=== PATIENT | female | born 1990 | race African-American/Black ===

== ENCOUNTER 2017-07-15 05:42 | Outpatient (CLI) | payer SELFPAY ==
[2017-07-15 06:58] LABS: Appearance,Urine Clear (Clear); Bilirubin,Urine Negative (Negative); Blood,Urine Negative (Negative); Color,Urine Light Yellow; Glucose,Urine (UA) Negative (Negative); Ketones,Urine Negative (Negative); Leukocyte Esterase,Urine Negative (Negative); Nitrite,Urine Negative (Negative); PH, Urine 7.5 (5.0-8.0); Protein,Urine Negative (Negative); Specific Gravity,Urine 1.006 (1.001-1.035); Urobilinogen,Urine <2.0 mg/dL (<2.0)
[2017-07-15 07:10] LABS: Cocaine Screen,Urine Detected (NotDetected); Phencyclidine Screen,Urine Not Detected (NotDetected); Urn Cannabinoid Scrn Not Detected (NotDetected)
[2017-07-15 07:11] LABS: Basophils % (A) 0 %; Eosinophils # (A) 0.1 k/uL (0-0.7); Eosinophils % (A) 0 %; HCT 30.9 % (34.0-46.0); HGB 9.7 gm/dL (11.4-16.0); Hypochromasia Slight; Lymphocytes # (A) 2.6 k/uL (1.0-4.8); Lymphocytes % (A) 18 %; MCH 26.9 pg (25.0-35.0); MCHC 31.5 g/dL (31.0-37.0); MCV 85.5 fL (80.0-100.0); Mean Platelet Volume 7.7; Monocytes % (A) 7 %; Neutrophils # (A) 10.7 k/uL (1.3-7.7); Neutrophils % (A) 74 %; Platelet Count 349 k/uL (150-450); RBC 3.61 m/uL (3.80-5.40); RDW 15.1 % (11.5-15.5); WBC 14.6 k/uL (3.8-10.6)
[2017-07-15 07:19] LABS: ALT 31 U/L (9-52); AST 33 U/L (14-36); LDH 442 U/L (313-618); Uric Acid 2.5 mg/dL (3.7-7.4)
[2017-07-15 07:23] LABS: Amphetamine Screen,Urine Not Detected (NotDetected); Barbiturate Screen,Urine Not Detected (NotDetected); Benzodiazepines Screen,Urine Not Detected (NotDetected); Methadone Screen, Urine Not Detected (NotDetected); Opiate Screen,Urine Not Detected (NotDetected); Oxycodone Screen, Urine Not Detected (NotDetected); Tricyclic Antidepressant,Urine Not Detected (NotDetected)
[2017-07-15 07:36] VITALS: RESP 20; TEMP 97.2
--- NOTE | 2017-07-15 08:24 | US ---
EXAMINATION TYPE: US OB >= 14 wk fetus DATE OF EXAM: 07/15/2017 COMPARISON: None CLINICAL HISTORY: possible abruption, complete ultrasound per MD TECHNIQUE: Transabdominal (TA) GESTATIONAL AGE / DATING Physician Established: (33 weeks/1 days) EDC: 09/01/2017 Dates by Current Scan: (33 weeks/4 days) EDC: 08/29/2017 SURVEY IUP: Single PLACENTA: Anterior PREVIA: No Previa HORACE: 23.1 cm Polyhydramnios CERVICAL LENGTH (transabdominal: norm > 3.0cm): 2.5 cm BIOMETRY PRESENTATION: Vertex LIE: Longitudinal BPD: 8.7 cm 35 weeks / 0 days HC: 31.3 cm 35 weeks / 0 days AC: 30.6 cm 34 weeks / 4 days FL: 6.3 cm 32 weeks / 4 days ESTIMATED WEIGHT IN GRAMS: 2352 grams ESTIMATED WEIGHT IN LBS/OZ: 5 lbs. 3 oz. WEIGHT PERCENTAGE BASED ON ESTABLISHED DATES: 71.7% HC/AC: 1.0 Normal FL/AC: 20.5 Normal HEART RATE: 134 bpm RHYTHM: Normal Live single IUP measuring 33 weeks 4 days. Polyhydramnios. Cervix appears short. Debris seen in am niotic fluid. IMPRESSION: 1. Although no discrete sonographic evidence of placental displacement or undermining is seen there i s polyhydramnios with diffuse debris within the amniotic fluid. Differential is for hemorrhage into t he amniotic cavity, meconium contamination, or vernix caseosa. 2. Cervical length is abnormally decreased measuring 2.5 cm. Evaluate for cervical insufficiency. A [facility] message has been communicated to Lynn Alcala DO via the [employer] system on 07/15/2017 8:22 AM, Message ID [id number].
[2017-07-15 09:05] VITALS: BP 143/86; PULSE 80
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
== END 2017-07-15 10:25 | disposition other institution (70) ==
LOC: FBPOP 05:42
PROVIDERS: ATTEND Obstetrics & Gynecology
DX: O99.89 Other specified diseases and conditions complicating pregnancy, childbirth and the puerperium (principal); R10.9 Unspecified abdominal pain; O99.323 Drug use complicating pregnancy, third trimester; F14.90 Cocaine use, unspecified, uncomplicated; F12.90 Cannabis use, unspecified, uncomplicated; O99.313 Alcohol use complicating pregnancy, third trimester; Z3A.33 33 weeks gestation of pregnancy
CPT/HCPCS: 59025; 76805; 80306; 81003; 82565; 82570; 82731; 83615; 84156; 84450; 84460; 84550; 85025; 96360; 96361; 99213; 99214

== ENCOUNTER 2019-07-13 15:31 | Inpatient (IN) | payer OTHER ==
[2019-07-13] MEDS ORDERED: CARBOPROST TROMETHAMINE 250 MCG/ML 1 ML AMP IM PRN (16:08)
[2019-07-13] MEDS ORDERED: TERBUTALINE 1 MG/ML VIAL SQ PRN (16:08)
[2019-07-13] MEDS ORDERED: METHYLERGONOVINE 0.2 MG/ML 1 ML AMP IM PRN (16:08)
[2019-07-13] MEDS ORDERED: OXYTOCIN 10 UNIT/ML 1 ML VIAL IM PRN (16:08)
[2019-07-13] MEDS ORDERED: LIDOCAINE 0.5% (PF) 5 MG/ML (50 ML SDV) SQ PRN (16:08)
[2019-07-13] MEDS ORDERED: PENICILLIN G POTASSIUM 5,000,000 UNIT in DEXTROSE 5% IN WATER 100 ML IVPB STA ×2 (16:12)
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
[2019-07-13 16:58] LABS: Appearance,Urine Cloudy (Clear); Bilirubin,Urine Negative (Negative); Blood,Urine Negative (Negative); Color,Urine Light Yellow; Glucose,Urine (UA) Negative (Negative); Ketones,Urine Negative (Negative); Leukocyte Esterase,Urine Large (Negative); Mucus,Urine Rare /hpf; Nitrite,Urine Negative (Negative); PH, Urine 6.5 (5.0-8.0); Protein,Urine Negative (Negative); RBC,Urine <1 /hpf (0-5); Specific Gravity,Urine 1.008 (1.001-1.035); Squamous Epithelial Cell,Urine 3 /hpf (0-4); Urobilinogen,Urine <2.0 mg/dL (<2.0); WBC,Urine 20 /hpf (0-5)
[2019-07-13] MEDS: LACTATED RINGERS 1,000 ML IV SCH ×3 (16:59→19:36)
[2019-07-13 17:07] LABS: Amphetamine Screen,Urine Not Detected (NotDetected); Barbiturate Screen,Urine Not Detected (NotDetected); Benzodiazepines Screen,Urine Not Detected (NotDetected); Cocaine Screen,Urine Detected (NotDetected); Methadone Screen, Urine Not Detected (NotDetected); Opiate Screen,Urine Not Detected (NotDetected); Oxycodone Screen, Urine Not Detected (NotDetected); Phencyclidine Screen,Urine Not Detected (NotDetected); Tricyclic Antidepressant,Urine Not Detected (NotDetected); Urn Cannabinoid Scrn Detected (NotDetected)
[2019-07-13 17:12] LABS: Anisocytosis Slight; Basophils # (A) 0.1 k/uL (0-0.2); Basophils % (A) 1 %; Eosinophils # (A) 0.1 k/uL (0-0.7); Eosinophils % (A) 1 %; HCT 30.4 % (34.0-46.0); HGB 9.4 gm/dL (11.4-16.0); Hypochromasia Slight; Lymphocytes # (A) 1.4 k/uL (1.0-4.8); Lymphocytes % (A) 19 %; MCH 28.2 pg (25.0-35.0); Mean Platelet Volume 7.1; Monocytes # (A) 0.5 k/uL (0-1.0); Monocytes % (A) 7 %; Neutrophils # (A) 5.1 k/uL (1.3-7.7); Neutrophils % (A) 69 %; Platelet Count 277 k/uL (150-450); RBC 3.34 m/uL (3.80-5.40); WBC 7.3 k/uL (3.8-10.6)
[2019-07-13] MEDS ORDERED: SODIUM CHLORIDE 0.9% 100 ML BAG ONE (17:31)
[2019-07-13] MEDS ORDERED: ROPIVACAINE 5MG/ML 20ML VIAL ONE (17:31)
[2019-07-13] MEDS ORDERED: fentaNYL (PF) 50 MCG/ML 5 ML AMP ONE (17:31)
[2019-07-13] MEDS ORDERED: OXYTOCIN 30 UNITS/500 ML NS 30 UNIT in SALINE 1 500ML.BAG IV SCH (19:00)
[2019-07-13] MEDS ORDERED: PENICILLIN G POTASSIUM 2,500,000 UNIT in DEXTROSE 5% IN WATER 100 ML IVPB SCH ×2 (20:15)
[2019-07-13] MEDS ORDERED: diphenhydrAMINE 25 MG CAP PO PRN ×2 (21:11→21:34)
[2019-07-13] MEDS ORDERED: diphenhydrAMINE 50 MG CAP PO PRN ×2 (21:11→21:34)
[2019-07-13] MEDS ORDERED: BENZOCAINE/MENTHOL SPRAY 1 GM/SPRAY AEROSOL TOPICAL PRN ×2 (21:11→21:34)
[2019-07-13] MEDS ORDERED: LANOLIN CREAM 5 GM TUBE TOPICAL PRN ×2 (21:11→21:34)
[2019-07-13] MEDS ORDERED: SIMETHICONE 80 MG CHEWABLE PO PRN ×2 (21:11→21:34)
[2019-07-13] MEDS ORDERED: ACETAMINOPHEN TAB 325 MG TAB PO PRN ×2 (21:11→21:34)
[2019-07-13] MEDS ORDERED: WITCH HAZEL 1 EACH MED..PAD TOPICAL PRN ×2 (21:11→21:34)
[2019-07-13] MEDS ORDERED: ZOLPIDEM 5 MG TAB PO PRN ×2 (21:11→21:34)
[2019-07-13] MEDS ORDERED: HYDROCORTISONE 2.5% RECTAL CREAM 30 GM TUBE RECTAL PRN ×2 (21:11→21:34)
[2019-07-13] MEDS ORDERED: diphenhydrAMINE 50 MG/ML 1 ML VIAL IVP PRN ×4 (21:11→21:34)
[2019-07-13] MEDS ORDERED: OXYTOCIN 20 UNITS/1000 ML NS 1,000 ML IV SCH ×2 (21:15→21:45)
[2019-07-13] MEDS: IBUPROFEN 600 MG TAB PO PRN (21:26)
[2019-07-13] MEDS ORDERED: IBUPROFEN 600 MG TAB PO PRN (21:34)
--- NOTE | 2019-07-13 21:34 | P.PROBDLV ---
Vaginal Delivery Note - . Vaginal Delivery Note: This is a 29-year-old black female 7 para 3033 EDC 07/18/2019 at 39-2/7 weeks' gestation. Patient presented with no care in active labor. 2 days ago she consumed her last crack cocaine, marijuana, and alcohol. In addition she smokes 2 pack per day tobacco. She has a history of HSV but no active lesions. Please see my dictated history and physical for details. Artificial amniorrhexis revealed light meconium-stained fluid. She became completely dilated at 4 hours. Perineal body was prepped and draped in usual sterile fashion. Epidural had been placed per her request. Please note that heart tones were reassuring throughout the first and second stages of labor. Very quickly 's head delivered occiput anterior and restituted accordingly. There was no nuchal cord noted. The left or anterior shoulder delivered from underneath the pubic symphysis easily at which time the oropharynx, nasopharynx, and external nares were all bulb suctioned on the perineal body. Patient was officially delivered of a liveborn female at 2035 hours. Umbilical cord was doubly clamped and ligated, she was handed to waiting nurses for evaluation where scores of 9 and 9 at one and 5 minutes respectively were given. Cord blood was sent to the lab. The placenta delivered spontaneously, it was inspected and noted to be intact with trivascular cord at 2040 hours. This time the uterus is massaged. Careful inspection of the cervix, vagina, perineum, periurethral, and perirectal areas revealed no lacerations or defects. weighed 2500 g or 5 lbs. 8 oz. All sponge needle and enhancement counts are correct at the end of the procedure. Total estimated blood loss 200 mL's. rehabilitation services manager consult will be obtained.
[2019-07-13] MEDS ORDERED: SERTRALINE 100 MG TAB PO SCH (22:30)
[2019-07-13] MEDS: QUEtiapine 200 MG TAB PO SCH (22:41)
[2019-07-13] MEDS: CYCLOBENZAPRINE 10 MG TAB PO PRN (23:44)
[2019-07-14 00:41] LABS: Hepatitis B Surface Antigen Non-Reactive (Non-Reactive)
[2019-07-14 06:20] VITALS: RESP 16
[2019-07-14 07:49] LABS: Basophils # (A) 0.1 k/uL (0-0.2); Basophils % (A) 1 %; Eosinophils # (A) 0.1 k/uL (0-0.7); Eosinophils % (A) 1 %; HCT 28.9 % (34.0-46.0); HGB 9.3 gm/dL (11.4-16.0); Lymphocytes # (A) 1.8 k/uL (1.0-4.8); Lymphocytes % (A) 21 %; MCH 28.6 pg (25.0-35.0); MCHC 32.3 g/dL (31.0-37.0); MCV 88.4 fL (80.0-100.0); Mean Platelet Volume 7.3; Monocytes # (A) 0.6 k/uL (0-1.0); Monocytes % (A) 8 %; Neutrophils # (A) 5.5 k/uL (1.3-7.7); Neutrophils % (A) 67 %; Platelet Count 275 k/uL (150-450); RBC 3.27 m/uL (3.80-5.40); RDW 15.7 % (11.5-15.5); WBC 8.3 k/uL (3.8-10.6)
[2019-07-14] MEDS ORDERED: SENNOSIDES-DOCUSATE SODIUM 1 EACH TAB PO SCH (08:00)
[2019-07-14] MEDS: SENNOSIDES-DOCUSATE SODIUM 1 EACH TAB PO SCH ×2 (09:44→21:29)
[2019-07-14] MEDS: QUEtiapine 200 MG TAB PO SCH (09:45)
[2019-07-14] MEDS: valACYclovir 500 MG TAB PO SCH (09:45)
--- NOTE | 2019-07-14 10:41 | P.PN ---
Subjective Progress Note Date: 07/14/19 Principal diagnosis: day #1 Objective - Vital Signs Vital signs: Vital Signs Temp 98.2 F 07/14/19 08:00 Pulse 73 07/14/19 08:00 Resp 16 07/14/19 08:00 BP 137/86 07/14/19 08:00 Pulse Ox 100 07/13/19 23:55 Intake & Output 07/13/19 07/14/19 07/14/19 18:59 06:59 18:59 Output Total 701 Balance -701 Weight 72.121 kg Output: Urine 701 Other: # Voids 1 0 700 - Constitutional Constitutional Comment(s): Patient argumentative, somnolent. General appearance: Present: average body habitus - EENT Eyes: Present: poor dentition ENT: Present: hearing grossly normal - Neck Neck: Present: normal ROM - Respiratory Respiratory: bilateral: CTA - Cardiovascular Rhythm: regular - Gastrointestinal Gastrointestinal Comment(s): Fundus firm, midline, symmetric, 18 week size General gastrointestinal: Present: normal bowel sounds - Neurologic Neurologic: Present: CNII-XII intact - Musculoskeletal Musculoskeletal: Present: gait normal - Psychiatric Psychiatric Comment(s): Patient very irritable, argumentative with staff. Declines further discussion with me, asking for me to leave the room. - Labs CBC & Chem 7: 07/14/19 07:10 07/13/19 16:51 Labs: Abnormal Lab Results - Last 24 Hours (Table) 07/13/19 07/13/19 07/14/19 Range/Units 16:00 16:49 07:10 RBC 3.34 L 3.27 L (3.80-5.40) m/uL Hgb 9.4 L 9.3 L (11.4-16.0) gm/dL Hct 30.4 L 28.9 L (34.0-46.0) % RDW 16.0 H 15.7 H (11.5-15.5) % Urine Appearance Cloudy H (Clear) Ur Leukocyte Esterase Large H (Negative) Urine WBC 20 H (0-5) /hpf Urine Mucus Rare H (None) /hpf Urine Cocaine Screen Detected H (NotDetected) U Marijuana (THC) Screen Detected H (NotDetected) Assessment and Plan Assessment: day #1 Plan: Patient refuses discharge home today. I have shared with her that I'm concerned about her withdrawal signs and symptoms, and an anxious for her to be admitted to [place] for proper drug rehabilitation program and coverage. She states she will not discussed with me further, requesting to be left alone so that she can sleep. rn patient services consult is in progress. Will not circumcised today as he is being monitored closely in the nursery. Time with Patient: Less than 30
[2019-07-14] MEDS: IBUPROFEN 600 MG TAB PO PRN (22:37)
[2019-07-14] MEDS: SERTRALINE 100 MG TAB PO SCH (22:38)
[2019-07-14] MEDS: CYCLOBENZAPRINE 10 MG TAB PO PRN (22:38)
[2019-07-15 00:07] VITALS: TEMP 98.2
--- NOTE | 2019-07-15 00:07 | US ---
EXAMINATION TYPE: US venous doppler duplex LE RT DATE OF EXAM: 07/14/2019 11:47 PM COMPARISON: NONE CLINICAL HISTORY: rule out embolus. palp lump in right pop fossa SIDE PERFORMED: Right TECHNIQUE: The lower extremity deep venous system is examined utilizing real time linear array sonog andrzej with graded compression, doppler sonography and color-flow sonography. VESSELS IMAGED: External Iliac Vein (EIV) Common Femoral Vein Deep Femoral Vein Greater Saphenous Vein * Femoral Vein Popliteal Vein Small Saphenous Vein * Proximal Calf Veins (* superficial vessels) Right Leg: Negative for DVT Imaging was performed at area of palpable. There is a varicosity with thrombus noted at palpable. IMPRESSION: There is no evidence of deep venous thrombosis. There is thrombosed varicose vein.
[2019-07-15 08:01] VITALS: BP 114/79; PULSE 70
--- NOTE | 2019-07-15 09:17 | P.DS ---
Providers Date of admission: 07/13/19 16:31 Expected date of discharge: 07/15/19 Attending physician: Kaci Leggett Primary care physician: Stated None Hospital Course: This is a 29-year-old black female 7 para 3033 EDC 07/18/2019 at 39-2/7 weeks' gestation. Patient presented to our hospital in early spontaneous labor. She has had no care. She last used crack cocaine and THC per her report 2 days ago. She has a history of seizures, off seizure meds with . She smokes 2 packs per day and also admits to alcohol use. Please see my dictated history and physical for details. Artificial amniorrhexis revealed light meconium-stained fluid. Epidural was placed per her request. She went on to deliver a liveborn female with scores of 9 and 9 at one and 5 minutes respectively. Penicillin G prop hylaxis was given. weighed 5 lbs. 8 oz. or 2500 g. The were no perineal lacerations encountered. Total estimated blood loss 200 mL's. Trivascular cord. Placenta sent to pathology. Please see my dictated delivery note for details. This morning the patient appears less somnolent, and less aggressive in her mannerisms. Her plan is to be discharged to [facility] facility, they have be en contacted and are aware of the patient's status. I have reminded her no intercourse, tampons or douching. We have briefly discussed options for contraception and we'll discuss this further in the office. I would see the patient in the office in 6 weeks for her check if she is available, the patient does live in the [facility]. I have recommended Advil or Aleve as needed for pain. I've asked her to call the office with any fevers shakes or chills, foul smelling or copious lochia, with the passage of large blood clots, with any difficulties or issues not alleviated by [id number] medications. The patient did have a varicosity posterior to the knee and a Doppler ultrasound this morning is negative for DVT. She has varicosities noted in the vulvar area as well. I have discussed with her recommendations in this regard. [place] infant will remain in the nursery at this time, social media marketing manager team aware and following. Patient Condition at Discharge: Fair Plan - Discharge Summary Discharge Rx Participant: No New Discharge Prescriptions: No Action QUEtiapine [SEROquel] 200 mg PO DAILY Cyclobenzaprine [Flexeril] 10 mg PO TID valACYclovir [Valtrex] 500 mg PO DAILY Sertraline [Zoloft] 100 mg PO DAILY Discharge Medication List Cyclobenzaprine [Flexeril] 10 mg PO TID 07/13/19 [History] QUEtiapine [SEROquel] 200 mg PO DAILY 07/13/19 [History] Sertraline [Zoloft] 100 mg PO DAILY 07/13/19 [History] valACYclovir [Valtrex] 500 mg PO DAILY 07/13/19 [History] Follow up Appointment(s)/Referral(s): Kaci Leggett MD [STAFF PHYSICIAN] - 6 Weeks
[2019-07-15] MEDS: valACYclovir 500 MG TAB PO SCH (10:16)
[2019-07-15] MEDS: SENNOSIDES-DOCUSATE SODIUM 1 EACH TAB PO SCH (10:16)
[2019-07-15] MEDS: SERTRALINE 100 MG TAB PO SCH (10:17)
[2019-07-15] MEDS ORDERED: QUEtiapine 200 MG TAB PO SCH (21:00)
[2019-07-17 19:03] LABS: HIV 1 AB Non-Reactive (Non-Reactive); HIV 2 AB Non-Reactive (Non-Reactive); HIV AB P24 Non-Reactive (Non-Reactive); HIV P24 AG Non-Reactive (Non-Reactive)
== END 2019-07-15 13:35 | disposition home or self-care (01) | DRG 806 ==
LOC: FBPOP 15:31 → 4FBP 16:31
PROVIDERS: ADMIT Obstetrics & Gynecology; ATTEND Obstetrics & Gynecology
PROC: 00HU33Z Insertion of Infusion Device into Spinal Canal, Percutaneous Approach (ICD-10-PCS; principal; 2019-07-13)
PROC: 10E0XZZ Delivery of Products of Conception, External Approach (ICD-10-PCS; principal; 2019-07-13)
PROC: 3E0R3BZ Introduction of Anesthetic Agent into Spinal Canal, Percutaneous Approach (ICD-10-PCS; principal; 2019-07-13)
DX: O77.0 Labor and delivery complicated by meconium in amniotic fluid (principal); O23.43 Unspecified infection of urinary tract in pregnancy, third trimester; Z37.0 Single live birth; O99.354 Diseases of the nervous system complicating childbirth; O87.8 Other venous complications in the puerperium; G40.909 Epilepsy, unspecified, not intractable, without status epilepticus; O99.62 Diseases of the digestive system complicating childbirth; K40.90 Unilateral inguinal hernia, without obstruction or gangrene, not specified as recurrent; T37.3X6A Underdosing of other antiprotozoal drugs, initial encounter; O99.334 Smoking (tobacco) complicating childbirth; F17.210 Nicotine dependence, cigarettes, uncomplicated; F14.90 Cocaine use, unspecified, uncomplicated; F15.90 Other stimulant use, unspecified, uncomplicated; Z72.89 Other problems related to lifestyle; O75.89 Other specified complications of labor and delivery; Z3A.39 39 weeks gestation of pregnancy; Z59.0 Homelessness; Z91.410 Personal history of adult physical and sexual abuse; Z86.59 Personal history of other mental and behavioral disorders; Z91.128 Patient's intentional underdosing of medication regimen for other reason
CPT/HCPCS: 80306; 81001; 82947; 85025; 86762; 86780; 86850; 86900; 86901; 87340; 87390; 88307; 99213